=== PATIENT | female | born 1960 ===

== ENCOUNTER 2017-12-19 10:12 | Outpatient (CLI) | payer OTHER ==
[~2017-12-19] VITALS: Ht 162.6 cm; Wt 95.3 kg
== END 2017-12-19 10:30 | disposition home or self-care (01) ==
LOC: OFIC 805 10:12
DX: R49.8 Other voice and resonance disorders (principal); H69.83 Other specified disorders of Eustachian tube, bilateral; H61.21 Impacted cerumen, right ear; H65.21 Chronic serous otitis media, right ear; K14.8 Other diseases of tongue

== ENCOUNTER 2019-12-05 11:09 | Outpatient (CLI) | payer OTHER | END 2019-12-05 16:31 | disposition home or self-care (01) | LOC: OFIC 805 11:09 | PROVIDERS: ATTEND Otolaryngology Otology & Neurotology | DX: C90.00 Multiple myeloma not having achieved remission (principal); E85.89 Other amyloidosis ==

== ENCOUNTER 2020-03-24 10:31 | Outpatient (CLI) | payer OTHER | END 2020-03-24 12:00 | disposition home or self-care (01) | LOC: OFIC 805 10:31 | PROVIDERS: ATTEND Otolaryngology Otology & Neurotology | DX: C14.8 Malignant neoplasm of overlapping sites of lip, oral cavity and pharynx (principal); E85.89 Other amyloidosis; C90.00 Multiple myeloma not having achieved remission; H69.83 Other specified disorders of Eustachian tube, bilateral ==

== ENCOUNTER 2020-06-30 14:11 | Outpatient (CLI) | payer OTHER | END 2020-06-30 15:21 | disposition home or self-care (01) | LOC: OFIC 805 14:11 | PROVIDERS: ATTEND Otolaryngology Otology & Neurotology | DX: H65.21 Chronic serous otitis media, right ear (principal); E85.89 Other amyloidosis; C14.0 Malignant neoplasm of pharynx, unspecified; C90.00 Multiple myeloma not having achieved remission ==